=== PATIENT | male | born 1965 | race Caucasian/White ===

== ENCOUNTER 2017-05-19 22:16 | Emergency (ER) | payer OTHER ==
[2017-05-20] MEDS ORDERED: Clindamycin CAP* 150 MG PO ONE (01:26)
--- NOTE | 2017-05-20 02:13 | ED ---
Eva Tran Rebecca, scribed for Jeff Metcalf on 05/20/17 at 0128 . Lower Extremity - HPI Summary HPI Summary: Pt is a 51 y/o M who presents to D c/o RLE pain and swelling. Sx began about 2 hours [employer] and have been constant since onset. Pain is currently mild, ranked 2/ 10. Sx aggravated nad alleviated by nothing. 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 He has been on Coumadin for 20 years and the last time his INR was checked was 3 weeks ago. - History of Current Complaint Chief Complaint: EDExtremityLower Stated Complaint: RT LEG PAIN Time Seen by Provider: 05/20/17 01:11 Hx Obtained From: Patient Onset of Pain: Hours - 2 hours, Prior to Arrival Onset/Duration: Still Present Severity Currently: Mild Pain Intensity: 2 Pain Scale Used: 0-10 Numeric Location: Is Discrete @ - RLE Associated Signs And Symptoms: Positive: Swelling Aggravating Factor(s): Nothing Alleviating Factor(s): Nothing - Allergies/Home Medications Allergies/Adverse Reactions: Allergies Allergy/AdvReac Type Severity Reaction Status Date / Time No Known Allergies Allergy Verified 05/19/17 22:23 PMH/Surg Hx/FS Hx/Imm Hx Endocrine/Hematology History: Reports: Hx Anticoagulant Therapy - Coumadin Cardiovascular History: Reports: Hx Deep Vein Thrombosis Infectious Disease History: No Infectious Disease History: Denies: Traveled Outside the [place] in Last 30 Days - Family History Known Family History: Negative: Cardiac Disease, Hypertension, Diabetes - Social History Alcohol Use: Weekly Substance Use Type: Reports: None Smoking Status (MU): Never Smoked Tobacco Review of Systems Negative: Fever Positive: Other - RLE pain and swelling All Other Systems Reviewed And Are Negative: Yes Physical Exam - Summary Physical Exam Summary: Appearance: Well appearing, no pain distress Skin: warm, dry, reflects adequate perfusion Head/face: normal Eyes: EOMI, [facility] ENT: normal Neck: supple, nontender Respiratory: CTA, breath sounds present Cardiovascular: RRR, pulses symmetrical Abdomen: nontender, soft Bowel: present Musculoskeletal: strength/ROM intact,1+ pedal edema, tenderness of the R calf and some erythema over the dorsal aspect of the leg Neuro: normal, sensory motor intact, A&Ox3 Triage Information Reviewed: Yes Vital Signs On Initial Exam: Initial Vitals Temp Pulse Resp BP Pulse Ox 96.8 F 62 16 176/106 100 05/19/17 22:19 05/19/17 22:19 05/19/17 22:19 05/19/17 22:19 05/19/17 22:19 Vital Signs Reviewed: Yes - [place] Coma Scale Coma Scale Total: 15 Diagnostics - Vital Signs Vital Signs Temp Pulse Resp BP Pulse Ox 05/19/17 22:23 96.8 F 62 18 176/106 100 05/19/17 22:19 96.8 F 62 16 176/106 100 - Laboratory Lab Statement: Any lab studies that have been ordered have been reviewed, and results considered in the medical decision making process. - Ultrasound No standard instances Ultrasound Interpretation: No Acute Changes - Dopper Venous Study: No DVT. ED physician reviewed this radiology report and agrees. Ultrasound Interpretation Completed By: Radiologist Re-Evaluation - Re-Evaluation First Eval Re-Evaluation Time: 02:08 Change: Improved Comment: Discussed results and D/C plan with the pt. Lower Extremity Course/Dx - Course Assessment/Plan: Pt is a 51 y/o M who presents to D c/o RLE pain and swelling. Sx began about 2 hours [employer] and have been constant since onset. Pain is currently mild, ranked 2/10. Sx aggravated nad alleviated by nothing. 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 He has been on Coumadin for 20 years and the last time his INR was checked was 3 weeks ago. Venous doppler study reveals no acute findings. In the ED course, pt received Clindamycin. Pt will be D/C to home with Dx of cellultiis , R leg with Rx for Clindamycin and a follow up with his PCP. He understands and agrees. Elevated BP noted and advised to f/u with PCP. - Diagnoses Provider Diagnoses: Cellulitis of right leg Discharge - Discharge Plan Condition: Stable Disposition: HOME Patient Education Materials: Cellulitis (ED) Referrals: [facility] [Outside] - 3 Days The documentation as recorded by the Eva robles Rebecca accurately reflects the service I personally performed and the decisions made by me, Jeff Metcalf.
[2017-05-20 02:15] VITALS: BP 162/94
--- NOTE | 2017-05-20 07:37 | RAD ---
INDICATION: Right lower extremity pain. COMPARISON: There are no prior studies available for comparison. TECHNIQUE: Multiple real-time, color flow and Doppler tracings of the right lower extremity were obtained. FINDINGS: The common femoral, femoral, profunda femoral and popliteal veins all demonstrate normal compressibility, augmentation with compression and phasic response with respiration. The posterior tibial and peroneal veins demonstrate normal compressibility and augmentation with compression. IMPRESSION: NO EVIDENCE FOR DEEP VENOUS THROMBOSIS.
== END 2017-05-20 02:32 | disposition home or self-care (01) ==
LOC: ED 22:16
DX: L03.115 Cellulitis of right lower limb (principal)
CPT/HCPCS: 99282; A9270-GY

== ENCOUNTER 2023-12-19 17:39 | Observation (INO) ==
[2023-12-19] MEDS: Cefepime 2 GM in Dextrose 2 GM/50 ML BAG IV ONE (19:00)
[2023-12-19 19:08] LABS: ABS Basophils 0.1 10^3/uL (0.0-0.1); ABS Eosinophils 0.1 10^3/uL (0.0-0.5); ABS Lymphocytes 1.5 10^3/uL (1.0-4.8); ABS Monocytes 0.8 10^3/uL (0.0-1.1); ABS Neutrophils 4.6 10^3/uL (1.5-7.6); Eosinophil % 1.7 %; Hematocrit 43.8 % (38-53); Lymphocyte % 21.6 %; Mean Corpuscular Hemoglobin 29.3 pg (27-33); Mean Corpuscular Hgb Conc 34.3 g/dL (31-36); Mean Corpuscular Volume 85.4 fL (80-97); Mean Platelet Volume 7.9 fL (7.5-11.2); Nucleated Red Blood Cells % 0.1 %/100WBC (0.0-0.8); Platelet Count 242 10^3/uL (150-450); Red Blood Count 5.13 10^6/uL (4.06-5.63); Red Cell Distribution Width 14.1 % (12-17)
[2023-12-19 19:16] LABS: INR 1.61 (0.83-1.13)
[2023-12-19 19:48] LABS: Albumin 4.2 g/dL (3.2-5.2); Albumin/Globulin Ratio 1.4 (1-3); C Reactive Protein 6.86 mg/L (<8.01); Calcium 9.4 mg/dL (8.6-10.3); Creatinine, Serum 1.08 mg/dL (0.67-1.17); Globulin 2.9 g/dL (2-4); Total Bilirubin 0.4 mg/dL (0.2-1.0); Total Protein 7.1 g/dL (6.4-8.9); eGFR CKD-EPI 78.6 (>60)
[2023-12-19] MEDS: Vancomycin 2,000 MG in NS 0.9% 500 ml BAG 500 ML IVPB ONE (20:48)
[2023-12-20] MEDS ORDERED: Vancomycin per Pharmacy 1 EA NOTE FOLLOW UP SCH (01:00)
[2023-12-20 06:56] LABS: ABS Basophils 0.1 10^3/uL (0.0-0.1); ABS Eosinophils 0.2 10^3/uL (0.0-0.5); ABS Lymphocytes 1.7 10^3/uL (1.0-4.8); ABS Monocytes 0.8 10^3/uL (0.0-1.1); ABS Neutrophils 4.5 10^3/uL (1.5-7.6); Hematocrit 43.7 % (38-53); Hemoglobin 14.9 g/dL (13.2-16.3); Mean Corpuscular Hemoglobin 29.5 pg (27-33); Mean Corpuscular Hgb Conc 34.1 g/dL (31-36); Mean Corpuscular Volume 86.7 fL (80-97); Mean Platelet Volume 8.1 fL (7.5-11.2); Nucleated Red Blood Cells % 0.1 %/100WBC (0.0-0.8); Platelet Count 242 10^3/uL (150-450); Red Blood Count 5.04 10^6/uL (4.06-5.63); White Blood Count 7.3 10^3/uL (3.6-10.2)
[2023-12-20 07:55] LABS: Calcium 9.1 mg/dL (8.6-10.3); Creatinine, Serum 0.98 mg/dL (0.67-1.17); Magnesium 1.9 mg/dL (1.9-2.7); Potassium 4.1 mmol/L (3.5-5.0); eGFR CKD-EPI 88.3 (>60)
[2023-12-20] MEDS: Vancomycin 1,250 MG in NS 0.9% 250 ml 250 ML IVPB SCH (09:33)
[2023-12-20] MEDS: hydrALAZINE 20 mg/ml 1 ML Vial IV IV SLOW PU PRN (17:38)
[2023-12-21 06:48] LABS: ABS Basophils 0.1 10^3/uL (0.0-0.1); ABS Eosinophils 0.2 10^3/uL (0.0-0.5); ABS Lymphocytes 1.8 10^3/uL (1.0-4.8); ABS Monocytes 0.7 10^3/uL (0.0-1.1); ABS Neutrophils 4.7 10^3/uL (1.5-7.6); ABS Nucleated RBC 0.01 10^3/ul; Eosinophil % 2.2 %; Hematocrit 42.2 % (38-53); Hemoglobin 14.4 g/dL (13.2-16.3); Lymphocyte % 24.4 %; Mean Corpuscular Hemoglobin 29.2 pg (27-33); Mean Corpuscular Hgb Conc 34.1 g/dL (31-36); Mean Corpuscular Volume 85.6 fL (80-97); Mean Platelet Volume 8.2 fL (7.5-11.2); Nucleated Red Blood Cells % 0.1 %/100WBC (0.0-0.8); Platelet Count 228 10^3/uL (150-450); Red Blood Count 4.93 10^6/uL (4.06-5.63); Red Cell Distribution Width 14.1 % (12-17); White Blood Count 7.4 10^3/uL (3.6-10.2)
[2023-12-21 07:03] LABS: INR 1.88 (0.83-1.13)
[2023-12-21 07:06] LABS: Creatinine, Serum 0.79 mg/dL (0.67-1.17); Potassium 3.8 mmol/L (3.5-5.0); eGFR CKD-EPI 101.7 (>60)
[2023-12-21] MEDS ORDERED: Vancomycin Trough Check NOTE FOLLOW UP ONE (08:30)
[2023-12-21 09:40] VITALS: BP 170/109
[2023-12-21] MEDS: Furosemide 20 mg/2 ml IV VIAL IV SLOW PU ONE (10:27)
[2023-12-21] MEDS ORDERED: Vancomycin 1,250 MG in NS 0.9% 250 ml 250 ML IVPB SCH (12:00)
[2023-12-22] MEDS ORDERED: Vancomycin Trough Check NOTE FOLLOW UP ONE (11:30)
== END 2023-12-21 11:45 | disposition home or self-care (01) ==
LOC: EDHOLD 17:39 → ED 17:39 → SUATTDRO 23:35 → MED 12-20 01:30
PROVIDERS: ADMIT Student in an Organized Health Care Education/Training Program; ATTEND Internal Medicine